=== PATIENT | female | born 1940 | race Caucasian/White ===

== ENCOUNTER → 2016-10-25 | Outpatient (CLI) | payer MEDICARE, OTHER ==
[~2016-10-25] MED LIST: CIPR500T89 PO; DITR1TAB PO; DRIS50002 PO; LEVA500T PO; OXYC1TAB23 PO
--- NOTE | 2016-10-25 15:54 | REP ---
KUB ABDOMEN AND PELVIS: KUB film of abdomen and pelvis is performed and compared to prior study of 09/29/2016. Previously noted calcification overlying the left renal shadow is no longer visualized. The left ureteral stent has been removed. There are vascular calcifications in a left paravertebral location at the level of L3, unchanged. Multiple phleboliths are again seen in the pelvis. Bowel gas pattern is normal. There are degenerative changes of the spine. IMPRESSION: Previously noted left renal calculus is no longer visualized. Left ureteral stent has been removed. Signed by Darrin Forrest MD 10/26/2016 05:07 P
== END ==
LOC: M SMT 08:57
PROVIDERS: ATTEND Urology
DX: N20.0 Calculus of kidney (principal)

== ENCOUNTER → 2018-09-18 | Outpatient (CLI) | payer MEDICARE, OTHER | LOC: M WHC 13:06 | DX: Z12.31 Encounter for screening mammogram for malignant neoplasm of breast (principal) | CPT/HCPCS: 77067 ==

== ENCOUNTER → 2019-11-01 | Outpatient (CLI) | payer MEDICARE, OTHER ==
[~2019-11-01] MED LIST changes: +CIPR-249 PO; -CIPR500T89 PO; -DRIS50002 PO; +DRIS50003 PO; +LEVA1TAB2 PO; -LEVA500T PO
--- NOTE | 2019-11-01 12:51 | REP ---
RENAL ULTRASOUND: Real-time sonographic evaluation of the kidneys is performed. Kidneys are normal in size and echotexture. Right kidney measuring 12.1 x 5.1 x 4.2 cm and left kidney 11.8 x 5.3 x 4.4 cm. There is no hydronephrosis bilaterally. Cystic structure with septations seen in the upper pole of the right kidney measures 3.5 x 2.0 x 2.2 cm. Cyst in the lower pole of the left kidney is exophytic and measures 1.7 x 1.2 x 1.3 cm. The right upper pole cyst has mildly increased in size. The left renal cyst is stable. IMPRESSION: No hydronephrosis. Stable cyst lower pole left kidney. The cyst with thin septations in the upper pole of the right kidney has increased in size, currently, 3.5 x 2.0 x 2.2 cm. On the prior ultrasound, it measured 2.1 x 2.1 x 1.4 cm. Please note the cystic structure of the left lower pole demonstrates diffuse internal echoes. Electronically Signed by Darrin Forrest MD 11/02/2019 03:18 P
--- NOTE | 2019-11-01 13:35 | REP ---
ULTRASOUND URINARY BLADDER: Real-time sonographic evaluation of the urinary bladder performed. The bladder measures 7.9 x 9.8 x 5.7 cm. Total volume is 233 mL. No mass or calculus is seen. Ureteral jets are seen in the urinary bladder with Doppler color evaluation. After voiding, there is no post-void residual. IMPRESSION: Negative bladder ultrasound. Electronically Signed by Darrin Forrest MD 11/02/2019 03:18 P
== END ==
LOC: M RAD 11:32
PROVIDERS: ATTEND Urology
DX: N28.1 Cyst of kidney, acquired (principal)

== ENCOUNTER → 2019-11-05 | Outpatient (CLI) | payer MEDICARE, OTHER ==
--- NOTE | 2019-11-05 16:28 | REPMRS ---
Patient History No known family history of cancer. Benign excisional biopsy of both breasts, 1995. Took unspecified hormones for 10 years. Digital Woman Screen Mammo: November 05, 2019 - Exam #: [id number] Bilateral CC and MLO view(s) were taken. Technologist: Nneka Sal, Technologist Prior study comparison: September 18, 2018, bilateral digital woman screen mammo performed at [facility]. September 27, 2016, digital woman screen mammo performed at [facility]. August 31, 2015, digital woman screen mammo performed at [facility]. FINDINGS: The breast tissue is heterogeneously dense. This may lower the sensitivity of mammography. There are stable groupings of coarse calcifications in the upper outer quadrants bilaterally. However, there is a new grouping of fine branching polymorphic calcifications in the upper outer quadrant of the right breast anteriorly it is dense stromal elements. These merit further evaluation. There is a moderate amount of heterogeneously dense fibroglandular tissue which is fairly symmetric. There is no other interval development of dominant mass, architectural distortion, or grouped microcalcification typical of malignancy. There has been no other change in the appearance of the mammogram from the prior studies. 3-D tomosynthesis shows no additional findings. Assessment: BI-RADS/ACR category 0 mammogram, Incomplete: Need additional imaging evaluation and/or prior mammograms for comparison. Recommendation Special view mammogram of the right breast. This patient's Lifetime Breast Cancer RIsk is estimated at 2.1 %. This mammogram was interpreted with the aid of an FDA-approved computer-aided dectection system. Electronically Signed By: Sukhwinder Stover MD 11/05/19 [id number]
--- NOTE | 2019-11-20 10:32 | DEXA ---
AP SPINE L1 - L4 1.152 -0.3 1.5 LT FEMUR TOTAL 0.961 -0.4 1.7 LT NECK 1.084 0.3 2.5 RT FEMUR TOTAL 0.857 -1.2 0.8 RT NECK 0.990 -0.3 1.8 TOTAL BODY TOTAL OTHER COMMENTS: Normal bone densitometry of the spine. Normal bone densitometry of the left hip. 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 The density of the spine has decreased 0.3% since the initial exam on 09/08/2003. The spine density has increased 1.3% since the most recent exam on 08/31/2015. The density of the left hip has decreased or 4.6% since the initial exam on 09/08/2003. The density of the left hip has decreased 1.3% since the most recent exam on 08/31/2015. The density of the right hip has decreased 11.1% since the initial exam on 09/08/2003. The density of the right hip has decreased 8.0% since the most recent exam on 08/31/2015. FOLLOW-UP: Recommendation for the next bone density exam: 2 years. VIDA
== END ==
LOC: M WHC 10:29
PROVIDERS: ATTEND Nurse Practitioner Family
DX: Z12.31 Encounter for screening mammogram for malignant neoplasm of breast (principal); M81.0 Age-related osteoporosis without current pathological fracture

== ENCOUNTER → 2019-11-27 | Outpatient (CLI) | payer MEDICARE, OTHER ==
--- NOTE | 2019-11-27 11:30 | REP ---
DIGITAL DIAGNOSTIC UNILATERAL RIGHT BREAST MAMMOGRAPHY WITH CAD: Three views. HISTORY: Screening mammography from November 05, 2019 was BIRADS category 0 because of a new grouping of fine branching polymorphic microcalcifications. Diagnostic imaging was recommended. Comparison mammography is also reviewed from September 18, 2018 and September 27, 2016. FINDINGS: Magnified focal spot compression CC, MLO, and true mediolateral views were obtained. These confirm the presence of a small grouping of branching polymorphic microcalcifications in the upper outer quadrant of the right breast middle third. There is a stable grouping of microcalcifications elsewhere more posteriorly in the upper outer quadrant on the right, which is not considered suspicious as it is unchanged from multiple prior studies. Some vascular calcification is noted. No mass lesion or spiculation is seen. IMPRESSION: BIRADS 4: BI-RADS/ACR category 4 mammogram. Suspicious Abnormality - biopsy should be considered. BIRADS category 4 suspicious right breast imaging. New grouping of microcalcifications in the upper outer quadrant of the right breast. Stereotactic needle biopsy recommended. This mammogram was interpreted with the aid of an FDA-approved computer-aided detection system. The patient states that she/he has not had a clinical breast exam in over a year. The patient letter being requested is M4 . Electronically Signed by Salvador Stover MD 11/27/2019 02:36 P
== END ==
LOC: M RAD 10:37
PROVIDERS: ATTEND Nurse Practitioner Family
DX: R92.2 Inconclusive mammogram (principal)

== ENCOUNTER → 2020-07-02 | Outpatient (CLI) | payer MEDICARE, OTHER ==
[2020-07-02 14:55] LABS: ALBUMIN 3.7 GM/DL (3.2-5.2); ALT/SGPT 22 U/L (12-78); BILIRUBIN,TOTAL 0.3 MG/DL (0.2-1.0); BLOOD UREA NITROGEN 12 MG/DL (7-18); CALCIUM LEVEL 8.9 MG/DL (8.8-10.2); CARBON DIOXIDE LEVEL 28 MEQ/L (21-32); CHLORIDE LEVEL 107 MEQ/L (98-107); CHOLESTEROL LEVEL 182 MG/DL (<200); CHOLESTEROL RISK RATIO 2.459 (<5); GLOMERULAR FILTRATION RATE > 60.0 (>32); GLUCOSE, FASTING 92 MG/DL (70-100); HDL CHOLESTEROL 74 MG/DL (>40); LDL CHOLESTEROL 89 MG/DL (<100); NON-HDL-C 108 MG/DL; POTASSIUM SERUM 4.3 MEQ/L (3.5-5.1); SODIUM LEVEL 139 MEQ/L (136-145); TOTAL 25(OH) VITAMIN D 20.9 NG/ML (30.0-100.0); TOTAL PROTEIN 6.8 GM/DL (6.4-8.2); TRIGLYCERIDES LEVEL 95 MG/DL (<150)
== END ==
LOC: M PLALAB 10:08
PROVIDERS: ATTEND Nurse Practitioner Adult Health
DX: Z13.29 Encounter for screening for other suspected endocrine disorder (principal); Z13.220 Encounter for screening for lipoid disorders; Z13.21 Encounter for screening for nutritional disorder; Z82.49 Family history of ischemic heart disease and other diseases of the circulatory system; Z79.899 Other long term (current) drug therapy
CPT/HCPCS: 36415; 80053; 80061; 82306; 84443; G0463

== ENCOUNTER → 2020-11-09 | Outpatient (CLI) | payer MEDICARE, OTHER ==
--- NOTE | 2020-11-09 11:17 | REP ---
INDICATION: N28.1 CYST OF KIDNEY/N39.0 UTI'S COMPARISON: 11/01/2019 TECHNIQUE: Real time tran scale and color Doppler ultrasound examination using curved array transducer. FINDINGS: The bilateral kidneys are normal in reniform shape and echotexture without hydronephrosis, nephrolithiasis, or renal mass lesion. Intrarenal vasculature appears normal bilaterally. Right kidney measures 12.3 x 6.3 x 5.2 cm (RI 0.60) and includes 2.9 x 2.2 x 2.8 cm septated upper pole cyst. Left kidney measures 10.9 x 4.9 x 4.9 cm (RI 0.60) and includes 1.4 x 1.1 x 1.2 cm lower pole simple cyst. Bladder is unremarkable without wall thickening or mass lesion and demonstrates bilateral ureteral jets. Current bladder measurements 8.2 x 8.4 x 6.6 cm (296 cc). IMPRESSION: Kidneys appear stable the including stable solitary bilateral renal cysts as compared with 11/01/2019. <Electronically signed by Scott Riggins > 11/09/20 1113
== END ==
LOC: M WHC 10:28
PROVIDERS: ATTEND Nurse Practitioner Women's Health
DX: N28.1 Cyst of kidney, acquired (principal); N39.0 Urinary tract infection, site not specified

== ENCOUNTER → 2022-08-25 | Outpatient (CLI) | payer MEDICARE, OTHER ==
[~2022-08-25] MED LIST changes: +MELA3TAB49 PO; +MOTR200T44 PO; +VITA200032 PO
== END ==
LOC: M LABSMTC 10:25
PROVIDERS: ATTEND Anesthesiology
DX: Z01.812 Encounter for preprocedural laboratory examination (principal); Z20.822 Contact with and (suspected) exposure to COVID-19

== ENCOUNTER → 2022-08-26 | Outpatient (CLI) | payer MEDICARE ==
[2022-08-26 17:39] LABS: BASO # 0.1 10^3/uL (0.0-0.2); BASO % 0.7 % (0.0-1.0); EOS # 0.2 10^3/uL (0.0-0.5); EOS % 2.9 % (0.0-3.0); HEMATOCRIT 37.4 % (36.0-47.0); LYMPH # 3.4 10^3/uL (1.5-5.0); LYMPH % 40.5 % (24.0-44.0); MEAN CORPUSCULAR HEMOGLOBIN 28.6 pg (27.0-33.0); MEAN CORPUSCULAR HGB CONC 32.1 g/dl (32.0-36.5); MEAN CORPUSCULAR VOLUME 89.3 fl (80.0-96.0); MONO # 0.7 10^3/uL (0.0-0.8); MONO % 8.3 % (2.0-8.0); NEUTROPHILS % 47.4 % (36.0-66.0); PLATELET COUNT, AUTOMATED 255 10^3/uL (150-450); RED BLOOD COUNT 4.19 10^6/uL (4.00-5.40); WHITE BLOOD COUNT 8.4 10^3/uL (4.0-10.0)
[2022-08-26 18:39] LABS: ALBUMIN 3.5 GM/DL (3.2-5.2); ALT/SGPT 25 U/L (12-78); BILIRUBIN,TOTAL 0.2 MG/DL (0.2-1.0); BLOOD UREA NITROGEN 11 MG/DL (7-18); CALCIUM LEVEL 9.1 MG/DL (8.8-10.2); CARBON DIOXIDE LEVEL 26 MEQ/L (21-32); CHLORIDE LEVEL 106 MEQ/L (98-107); CREATININE FOR GFR 0.48 MG/DL (0.55-1.30); GLOMERULAR FILTRATION RATE > 60.0 (>32); GLUCOSE, FASTING 86 MG/DL (70-100); NT-PRO BNP 82 PG/ML (<450); POTASSIUM SERUM 3.9 MEQ/L (3.5-5.1); SODIUM LEVEL 138 MEQ/L (136-145); TOTAL PROTEIN 7.2 GM/DL (6.4-8.2)
[2022-08-26 19:00] LABS: TOTAL 25(OH) VITAMIN D 24.8 NG/ML (30.0-100.0)
[2022-08-26 19:08] LABS: PTH INTACT 117.2 PG/ML (18.5-88.0)
== END ==
LOC: M PLALAB 15:32
PROVIDERS: ATTEND Family Medicine
DX: Z01.818 Encounter for other preprocedural examination (principal); E55.9 Vitamin D deficiency, unspecified; Z79.899 Other long term (current) drug therapy

== ENCOUNTER 2022-08-30 07:52 | Day surgery (SDC) | payer MEDICARE ==
[~2022-08-30] VITALS: Ht 167.6 cm; Wt 62.8 kg
[~2022-08-30 07:52] MED LIST changes: +BSS IRR 500ML/OMIDRIA 4ML IRR BAG (OR ONLY) As Ordered ONE; +CEFUROXIME 1MG/0.1ML INTRACAMERAL INJ As Ordered ONE; +LIDOCAINE 1% 1ML PF SYRINGE (OR EYE CASES) As Ordered ONE; +MIDAZOLAM INJ 2MG/2ML VIAL (J2250 PER 1MG) As Ordered ONE; +PROPARACAINE 0.5% OPHTH SOL 15ML OS ONE; +fentaNYL 100 MCG/2 ML INJECTION As Ordered ONE
[2022-08-30] MEDS: PHENYLEPHRINE 2.5% OPHTH SOL 2ML OS SCH ×3 (08:49→10:21)
[2022-08-30] MEDS: OFLOXACIN 0.3 % (OCUFLOX) OPTH SOL 5ML OS SCH ×3 (08:49→10:20)
[2022-08-30] MEDS: TROPICAMIDE 1% OPHTH SOLN 2ML OS SCH ×3 (08:49→10:21)
[2022-08-30] MEDS: CYCLOPENTOLATE 1% OPHTH SOLN 2 ML BTL OS SCH ×3 (08:49→10:20)
[2022-08-30 10:35] VITALS: BP 162/74
== END 2022-08-30 10:57 | disposition home or self-care (01) ==
LOC: M SDC 07:52
PROVIDERS: ATTEND Ophthalmology
DX: H25.12 Age-related nuclear cataract, left eye (principal); K21.9 Gastro-esophageal reflux disease without esophagitis; Z87.81 Personal history of (healed) traumatic fracture; E55.9 Vitamin D deficiency, unspecified; M47.812 Spondylosis without myelopathy or radiculopathy, cervical region; Z79.899 Other long term (current) drug therapy; Z87.891 Personal history of nicotine dependence
CPT/HCPCS: 66984; J0697; J1097; J2250; J3010; V2632

== ENCOUNTER → 2022-10-02 | Outpatient (CLI) | payer MEDICARE ==
[~2022-10-02] MED LIST changes: +BENZ-18 PO; -BSS IRR 500ML/OMIDRIA 4ML IRR BAG (OR ONLY) As Ordered ONE; -CEFUROXIME 1MG/0.1ML INTRACAMERAL INJ As Ordered ONE; -LIDOCAINE 1% 1ML PF SYRINGE (OR EYE CASES) As Ordered ONE; -MIDAZOLAM INJ 2MG/2ML VIAL (J2250 PER 1MG) As Ordered ONE; -PROPARACAINE 0.5% OPHTH SOL 15ML OS ONE; -fentaNYL 100 MCG/2 ML INJECTION As Ordered ONE
== END ==
LOC: M LABSMTC 09:08
PROVIDERS: ATTEND Anesthesiology
DX: Z01.812 Encounter for preprocedural laboratory examination (principal); Z20.822 Contact with and (suspected) exposure to COVID-19

== ENCOUNTER → 2022-10-06 | Outpatient (CLI) | payer MEDICARE | LOC: M LABSMTC 09:49 | PROVIDERS: ATTEND Anesthesiology | DX: Z01.812 Encounter for preprocedural laboratory examination (principal); Z11.52 Encounter for screening for COVID-19 ==

== ENCOUNTER 2022-10-11 07:56 | Day surgery (SDC) | payer MEDICARE ==
[~2022-10-11] VITALS: Ht 167.6 cm; Wt 62.6 kg
[~2022-10-11 07:56] MED LIST changes: +CEFUROXIME 1MG/0.1ML INTRACAMERAL INJ As Ordered ONE; +CYCLOPENTOLATE 1% OPHTH SOLN 2ML BTL OD SCH; +LIDOCAINE 1% 1ML PF SYRINGE (OR EYE CASES) As Ordered ONE; +OFLOXACIN 0.3 % (OCUFLOX) OPTH SOL 5ML OD SCH; +PHENYLEPHRINE 2.5% OPHTH SOL 2ML OD SCH; +PROPARACAINE 0.5% OPHTH SOL 15ML OD ONE; +TROPICAMIDE 1% OPHTH SOLN 15ML OD SCH
[2022-10-11] MEDS ORDERED: BSS IRR 500ML/OMIDRIA 4ML IRR BAG (OR ONLY) As Ordered ONE (09:42)
[2022-10-11] MEDS ORDERED: MIDAZOLAM INJ 2MG/2ML VIAL (J2250 PER 1MG) As Ordered ONE (09:52)
[2022-10-11] MEDS ORDERED: fentaNYL 100 MCG/2 ML INJECTION As Ordered ONE (09:52)
[2022-10-11 10:07] VITALS: BP 135/62
== END 2022-10-11 10:20 | disposition home or self-care (01) ==
LOC: M SDC 07:56
PROVIDERS: ATTEND Ophthalmology
DX: H25.11 Age-related nuclear cataract, right eye (principal); Z79.899 Other long term (current) drug therapy
CPT/HCPCS: 66984; J0697; J1097; J2250; J3010; V2632

== ENCOUNTER → 2022-11-01 | Outpatient (CLI) | payer MEDICARE ==
[~2022-11-01] MED LIST changes: -CEFUROXIME 1MG/0.1ML INTRACAMERAL INJ As Ordered ONE; -CYCLOPENTOLATE 1% OPHTH SOLN 2ML BTL OD SCH; -LIDOCAINE 1% 1ML PF SYRINGE (OR EYE CASES) As Ordered ONE; -OFLOXACIN 0.3 % (OCUFLOX) OPTH SOL 5ML OD SCH; -PHENYLEPHRINE 2.5% OPHTH SOL 2ML OD SCH; -PROPARACAINE 0.5% OPHTH SOL 15ML OD ONE; -TROPICAMIDE 1% OPHTH SOLN 15ML OD SCH
== END ==
LOC: M RAD 12:57
PROVIDERS: ATTEND Nurse Practitioner Women's Health
DX: N28.1 Cyst of kidney, acquired (principal)

== ENCOUNTER → 2022-11-23 | Outpatient (CLI) | payer MEDICARE ==
[~2022-11-23] MED LIST changes: +ISOVUE-370 76% 100ML VIAL As Ordered ONE
== END ==
LOC: M RAD 08:25
PROVIDERS: ATTEND Nurse Practitioner Women's Health
DX: N28.9 Disorder of kidney and ureter, unspecified (principal)
CPT/HCPCS: 74170; Q9967

== ENCOUNTER → 2024-02-01 | Outpatient (REF) | payer MEDICARE ==
[~2024-02-01] MED LIST changes: -ISOVUE-370 76% 100ML VIAL As Ordered ONE
== END ==
LOC: M SFHCPLAZ 12:29
PROVIDERS: ATTEND Nurse Practitioner Adult Health
DX: R05.9 Cough, unspecified (principal)

== ENCOUNTER → 2024-07-18 | Outpatient (CLI) | payer MEDICARE | LOC: M PLAIMG 10:34 | PROVIDERS: ATTEND Nurse Practitioner Adult Health | DX: R19.4 Change in bowel habit (principal) ==

== ENCOUNTER 2024-10-24 11:20 | Emergency (ER) | payer MEDICARE ==
[~2024-10-24] VITALS: Ht 167.6 cm; Wt 60.4 kg
[2024-10-24 12:29] LABS: BASO # 0.1 10^3/uL (0.0-0.2); BASO % 0.8 % (0.0-1.0); EOS # 0.4 10^3/uL (0.0-0.5); HEMATOCRIT 39.8 % (36.0-47.0); HEMOGLOBIN 13.1 g/dl (12.0-15.5); LYMPH % 31.3 % (24.0-44.0); MEAN CORPUSCULAR HEMOGLOBIN 29.5 pg (27.0-33.0); MEAN CORPUSCULAR HGB CONC 32.9 g/dl (32.0-36.5); MEAN CORPUSCULAR VOLUME 89.6 fl (80.0-96.0); MONO # 0.9 10^3/uL (0.0-0.8); NEUTROPHILS # 5.2 10^3/uL (1.5-8.5); NEUTROPHILS % 54.6 % (36.0-66.0); PLATELET COUNT, AUTOMATED 247 10^3/uL (150-450); RED BLOOD COUNT 4.44 10^6/uL (4.00-5.40); WHITE BLOOD COUNT 9.5 10^3/uL (4.0-10.0)
[2024-10-24 12:42] LABS: INR 0.95; PARTIAL THROMBOPLASTIN TIME 27.2 SECONDS (24.8-34.2)
[2024-10-24 12:51] LABS: LIPASE 28 U/L (12-53)
[2024-10-24 12:53] LABS: ALBUMIN 3.9 G/DL (3.2-5.2); ALKALINE PHOSPHATASE 81 U/L (35-104); ALT/SGPT 17 U/L (7.0-40); AMYLASE 81 U/L (30-118); AST/SGOT 25 U/L (<34); BILIRUBIN,DIRECT 0.1 MG/DL (<0.4); BILIRUBIN,TOTAL 0.4 MG/DL (0.3-1.2); BLOOD UREA NITROGEN 12 MG/DL (9-23); CALCIUM LEVEL 9.8 MG/DL (8.3-10.6); CARBON DIOXIDE LEVEL 26 MMOL/L (20-31); CHLORIDE LEVEL 103 MMOL/L (98-107); CREATININE FOR GFR 0.58 MG/DL (0.55-1.30); GLOMERULAR FILTRATION RATE > 60.0 (>32); GLUCOSE, FASTING 90 MG/DL (74-106); POTASSIUM SERUM 4.4 MMOL/L (3.5-5.1); SODIUM LEVEL 140 MMOL/L (136-145); TOTAL PROTEIN 7.7 G/DL (5.7-8.2)
[2024-10-24] MEDS ORDERED: ISOVUE-370 76% 100ML VIAL As Ordered ONE (17:38)
[2024-10-24] MEDS: GASTROGRAFIN SOLUTION 30ML PO SCH (17:40)
[2024-10-24] MEDS ORDERED: MIRA3350 PO (20:30)
[2024-10-24 20:34] VITALS: BP 173/82; TEMP 97.9; O2SAT 95
== END 2024-10-24 20:40 | disposition home or self-care (01) ==
LOC: M ED 11:20
DX: K92.2 Gastrointestinal hemorrhage, unspecified (principal); K62.9 Disease of anus and rectum, unspecified; I45.2 Bifascicular block; E55.9 Vitamin D deficiency, unspecified; Z79.899 Other long term (current) drug therapy
CPT/HCPCS: 36415; 74177; 80048; 80076; 82150; 83690; 85025; 85610; 85730; 86850; 86900; 86901; 93005; 99284; Q9963; Q9967